=== PATIENT | female | born 1965 | race Caucasian/White ===

== ENCOUNTER → 2017-06-04 | Outpatient (CLI) | payer SELFPAY ==
--- NOTE | 2017-06-04 09:10 | Diagnostic Imaging Report ---
PROCEDURE: CT head without contrast. TECHNIQUE: Multiple contiguous axial images were obtained through the brain without the use of intravenous contrast. INDICATION: Memory loss. COMPARISON: None. FINDINGS: Mild generalized cerebral and cerebellar parenchymal volume loss. Low-attenuation measuring up to 1.2 cm in the right cerebellar hemisphere. No intracranial hemorrhage, mass effect, hydrocephalus or extra-axial fluid collection. Intracranial vascular calcifications. Mild mucosal thickening in the asymmetrically small left maxillary sinus. The mastoids are clear. Osseous structures are intact. IMPRESSION: 1. Small region of low attenuation in the right cerebellar hemisphere represents a chronic infarct. However, an acute or subacute process cannot be excluded. This could be better evaluated with MRI. 2. Asymmetrically small left maxillary sinus with mild mucosal thickening. Dictated by: Dictated on workstation # [id number]
== END ==
LOC: RAD 08:24
PROVIDERS: ATTEND Internal Medicine
DX: I63.8 Other cerebral infarction (principal); J34.89 Other specified disorders of nose and nasal sinuses; R41.3 Other amnesia
CPT/HCPCS: 70450

== ENCOUNTER → 2017-11-24 | Outpatient (CLI) | payer OTHER ==
[~2017-11-24] VITALS: Ht 160 cm; Wt 82.1 kg
[~2017-11-24] MED LIST: CATHETER FLUSH 10 ML SYR IV PRN; REGADENOSON 0.4 MG/5 ML SYR (LEXISCAN) IV ONE
[2017-11-24 08:44] VITALS: BP 185/89
[2017-11-24 08:48] VITALS: BP 166/101
--- NOTE | 2017-11-24 15:08 | STRESS TEST ---
DATE OF SERVICE: 11/24/2017 RESTING AND POST REGADENOSON TECHNETIUM-99M TETROFOSMIN SPECT CT IMAGING. ORDERING PHYSICIAN: Lynette Mata APRN. PRIMARY PHYSICIAN: Dr. Elan Moran. CLINICAL DIAGNOSIS: Shortness of breath. Baseline images were carried out after injection of 10.75 mCi of technetium-99m Tetrofosmin. This was followed by 0.4 mg regadenoson and 29.6 mCi of technetium-99m Tetrofosmin for stress imaging. The electrocardiogram showed sinus rhythm. She noted mild chest discomfort with the regadenoson infusion, which resolved in a few minutes. Review of images at rest and following stress does not indicate significant perfusion defects consistent with significant myocardial ischemia or infarction. Gated images show normal global left ventricular systolic function and normal regional wall motion. Left ventricular ejection fraction is calculated to be 75%. Left ventricular end diastolic volume is 38 mL. TID is absent (1). CONCLUSIONS: 1. This study does not indicate evidence of significant myocardial ischemia or infarction. 2. Normal global left ventricular systolic function with ejection fraction of 75%. 3. Normal regional wall motion. Job ID: [id number] DocumentID: [id number] Dictated Date: 11/24/2017 14:54:56 Wareh[employer]er Date: 11/24/2017 15:07:04 Dictated By: LINDA MCCURDY MD, MA, FACP, FACC,
== END ==
LOC: CARD 06:48
PROVIDERS: ATTEND Nurse Practitioner Family
DX: R06.09 Other forms of dyspnea (principal); I25.10 Atherosclerotic heart disease of native coronary artery without angina pectoris; I10 Essential (primary) hypertension; E78.5 Hyperlipidemia, unspecified; Z86.73 Personal history of transient ischemic attack (TIA), and cerebral infarction without residual deficits
CPT/HCPCS: 78452; 93017; 93306

== ENCOUNTER → 2020-07-30 | Outpatient (CLI) | payer MEDICAID | LOC: CARD 09:53 | PROVIDERS: ATTEND Internal Medicine Cardiovascular Disease | DX: I25.10 Atherosclerotic heart disease of native coronary artery without angina pectoris (principal); I11.9 Hypertensive heart disease without heart failure; E78.5 Hyperlipidemia, unspecified | CPT/HCPCS: 93306 ==

== ENCOUNTER → 2020-08-20 | Outpatient (CLI) | payer MEDICAID ==
[~2020-08-20] VITALS: Ht 160 cm; Wt 79.0 kg
[2020-08-20 09:19] VITALS: BP 143/86
--- NOTE | 2020-08-20 20:05 | Cardiology Stress Test Report ---
Stress Test Report Date of Procedure/Referring: Date of Procedure: Aug 20, 2020 PCP Fina Pemberton MD Admitting Physician Elan Moran MD Indications: CAD Baseline Heart Rate: 51 Baseline Blood Pressure: Blood Pressure Systolic: 143 Blood Pressure Diastolic: 86 Baseline Vitals Vital Signs Date Time Temp Pulse Resp B/P (MAP) Pulse Ox O2 Delivery O2 Flow Rate FiO2 08/20/20 09:19 45 143/86 (105) Baseline EKG: Baseline EKG: NSR Summary After explaining the procedure to the patient, she signed a consent and then brought to the stress nuclear laboratory. Patient received 0.4 mg Lexiscan for stress test, ECG, heart rate and blood pressure were monitored continuously. Resting and stress dose of radio tracer were injected, imaging was acquired and reviewed in short axis, horizontal long axis and vertical long axis views. TID: 1.18 SSS: 5 SDS: 5 EF: 75 1. Patient tolerated Lexiscan well 2. Breast attenuation with mild decreased uptake involving the mid to apical anterolateral wall with mild reversibility, probably secondary to breast attenuation 3. Normal left ventricular size, EF 75% FINA PEMBERTON MD Aug 20, 2020 20:05
== END ==
LOC: CARD 08:30
PROVIDERS: ATTEND Internal Medicine Cardiovascular Disease
DX: I25.119 Atherosclerotic heart disease of native coronary artery with unspecified angina pectoris (principal); E78.5 Hyperlipidemia, unspecified; I10 Essential (primary) hypertension
CPT/HCPCS: 78452; 93017; A9502

== ENCOUNTER → 2022-08-19 | Outpatient (CLI) | payer MEDICARE, MEDICAID | LOC: CARD 12:42 | PROVIDERS: ATTEND Internal Medicine Cardiovascular Disease | DX: I10 Essential (primary) hypertension (principal); I25.10 Atherosclerotic heart disease of native coronary artery without angina pectoris | CPT/HCPCS: 93306 ==

== ENCOUNTER → 2022-09-22 | Outpatient (CLI) | payer MEDICARE, MEDICAID ==
[~2022-09-22] VITALS: Ht 160 cm; Wt 88.0 kg
[~2022-09-22] MED LIST changes: -CATHETER FLUSH 10 ML SYR IV PRN
[2022-09-22 07:21] LABS: POTASSIUM 4.4 MMOL/L (3.6-5.0)
[2022-09-22 07:22] LABS: ALBUMIN 4.1 GM/DL (3.2-4.5)
[2022-09-22 07:23] LABS: CALCIUM 9.6 MG/DL (8.5-10.1)
[2022-09-22 07:24] LABS: TOTAL PROTEIN 7.4 GM/DL (6.4-8.2)
[2022-09-22] MEDS: CATHETER FLUSH 10 ML SYR IVP PRN ×2 (07:24→09:22)
[2022-09-22 07:26] LABS: BILIRUBIN,TOTAL 0.5 MG/DL (0.1-1.0)
[2022-09-22 07:28] LABS: CREATININE SERUM 0.86 MG/DL (0.60-1.30)
[2022-09-22 09:17] VITALS: BP 160/90
--- NOTE | 2022-09-22 12:43 | Cardiology Stress Test Report ---
Stress Test Report Date of Procedure/Referring: Date of Procedure: September 22, 2022 PCP Elan Moran MD Admitting Physician Admitting Physician: Attending Physician: Nancy Cassidy Baseline Heart Rate: 64 Baseline Blood Pressure: Blood Pressure Systolic: 160 Blood Pressure Diastolic: 90 Baseline Vitals Vital Signs Date Time Temp Pulse Resp B/P (MAP) Pulse Ox O2 Delivery O2 Flow Rate FiO2 09/22/22 09:17 91 16 160/90 (113) 95 Room Air Baseline EKG: Baseline EKG: NSR Summary After explaining the procedure to the patient, she signed a consent and then brought to the stress nuclear laboratory. Patient received 0.4 mg Lexiscan for stress test, ECG, heart rate and blood pressure were monitored continuously. Resting and stress dose of radio tracer were injected, imaging was acquired and reviewed in short axis, horizontal long axis and vertical long axis views. TID: 1.19 SSS: 5 SDS: 3 EF: 75 Patient tolerated Lexiscan well Breast attenuation with mild decrease uptake at the basal to mid anterolateral wall with mild reversibility, overall no significant ischemia or infarction noted on SPECT images Normal left ventricular size, ejection fraction 75% FINA LUDWIG MD September 22, 2022 12:43
== END ==
LOC: CARD 06:49
PROVIDERS: ATTEND Physician Assistant
DX: I65.23 Occlusion and stenosis of bilateral carotid arteries (principal); I25.10 Atherosclerotic heart disease of native coronary artery without angina pectoris; I10 Essential (primary) hypertension; E78.2 Mixed hyperlipidemia
CPT/HCPCS: 36415; 78452; 80053; 80061; 93017